=== PATIENT | male | born 1960 | race Caucasian/White ===

== ENCOUNTER 2018-07-05 20:44 | Emergency (ER) | payer OTHER, SELFPAY ==
[2018-07-05 20:45] VITALS: BP 142/91; PULSE 88; RESP 18; TEMP 36.4; O2SAT 98; BMI 22.2
--- NOTE | 2018-07-05 21:04 | CT_ITS ---
STUDY: CT ABDOMEN AND PELVIS WITHOUT CONTRAST REASON FOR EXAM: Male, 57 years old. Right flank and low back pain with urinary frequency RADIATION DOSAGE (If Supplied By Facility): CTDIvol = ( 16.30 ) mGy, DLP = ( 761.68 ) mGycm TECHNIQUE: Transaxial images were obtained from the dome of the diaphragm to the symphysis pubis without oral contrast, and without intravenous contrast. Sagittal and coronal images were reconstructed. Individualized dose optimization techniques were used for this CT. COMPARISON: None. FINDINGS: The visualized lung bases are unremarkable. The visualized portions of the heart are within normal limits. Normal liver. Normal gallbladder and extrahepatic biliary system. Normal spleen. Normal pancreas. Normal bilateral adrenal glands. Normal right kidney. Peripelvic left renal cysts. Normal visualized stomach. Normal small intestine. Normal colon. The appendix is visualized and appears normal. Normal abdominal aorta. Normal inferior vena cava. Normal retroperitoneum. Normal urinary bladder. Normal abdominal wall. Normal osseous structures. CT/Abdomen/Pelvis without Cont IMPRESSION: No CT evidence of acute abdominopelvic pathology. No evidence of appendicitis, acute intestinal pathology, or acute obstructive uropathy. Electronically Signed: Donavan Bolivar MD at 22:08 EST Tel , Service support ,
[2018-07-05 21:20] LABS: Mucous, Urine 0 SEEN /hpf (<or=2+); Red Blood Cells-Urine 0 SEEN /hpf (0-5); Squamous Epithelial Cells - UA 0 SEEN /hpf (0-5)
[2018-07-05 21:35] LABS: Color, Urine Yellow (Yellow); Glucose, Dipstick Normal (Normal); Ketone-Dipstick 5 mg/dl (Negative); Leukocyte Esterase-Dipstick 500 /ul (Negative); Nitrite-Dipstick Positive (Negative); Occult Blood-Urine 25 /ul (Negative); Protein-Dipstick 15 mg/dl (Negative); Urine Bilirubin Dipstick Negative (Negative); Urine Clarity Cloudy (Clear); Urine Urobilinogen 1 mg/dl (Normal)
[2018-07-05 21:38] LABS: Bacteria 3+ /hpf (None Seen); White Blood Cells 25-50 SEEN /hpf (0-5)
--- NOTE | 2018-07-05 22:27 | ED.DCSUM_ITS ---
- ER Visit Summary Date of Service: 07/05/18 Chief Complaint: Right flank pain History of Present Illness: The patient is a 57 M reports right flank pain for the past 3 or 4 days. He initially thought he pulled a muscle. It is worse with movement. He has also noted urinary frequency and is now wondering if he may have a UTI or kidney stone. He had some mild nausea tonight. No significant fever. Physical Examination: Vital signs unremarkable. Patient sitting upright in bed no acute distress. Heart is regular rate and rhythm. Lungs sounds clear. Abdomen is soft with no focal tenderness. He does have mild right CVA tenderness. Test Results: Urinalysis is positive for nitrites with 25-50 white cells and 3+ bacteria. CT flank is unremarkable. Emergency Department Course and Treatment: Urine culture has been sent. Patient be treated with a course of Cipro. I will treat him for 10 days to cover pyelonephritis as he does have pain into the flank region. No perinephric stranding or significant inflammation is noted at this time on CT. Patient denies significant rectal pain or pressure. He states he has had prostatitis before this does not feel similar. Treatment Plan: [] Disposition: Discharge Impression: Pyelonephritis This note was generated with [employer] dictation software. It may contain incorrect words, spelling, and punctuation that were not noted in review of the chart prior to signing ED Disposition - Plan for ED Patient: Disposition: Home or Assisted Living Chief Complaint: Flank Pain Instructions: ED UTI Pyelonephritis Male Prescriptions: Ciprofloxacin [Cipro] 500 mg PO BID #20 tablet Referrals: Eldon Dye MD [Primary Care Provider] - 1 Week
[2018-07-05] MEDS: Ciprofloxacin 500 MG Tablet PO (22:33)
[2018-07-05 22:35] VITALS: BP 118/74; PULSE 62; RESP 15; O2SAT 99
== END 2018-07-05 22:35 | disposition home or self-care (01) ==
PROVIDERS: Emergency Provider Emergency Medicine; Family Provider Family Medicine; PCP Family Medicine
DX: N12 Tubulo-interstitial nephritis, not specified as acute or chronic (principal); G47.419 Narcolepsy without cataplexy; Z87.442 Personal history of urinary calculi
CPT/HCPCS: 74176; 81001; 87086; 87088; 87186; 99283

== ENCOUNTER 2024-11-29 22:34 | Inpatient (IN) | payer BC, MEDICARE, SELFPAY ==
[2024-11-29 22:35] VITALS: BP 154/79; PULSE 67; RESP 18; TEMP 36.6; O2SAT 100; BMI 24.3
--- NOTE | 2024-11-29 22:54 | EKG12_ITS ---
Test Reason : CP Blood Pressure : */* mmHG Vent. Rate : 70 BPM Atrial Rate : 70 BPM P-R Int : 162 ms QRS Dur : 82 ms QT Int : 396 ms P-R-T Axes : 75 29 61 degrees QTcB Int : 427 ms Normal sinus rhythm Nonspecific ST abnormality Abnormal ECG Confirmed by ASHKAN TIJERINA MD ([id number]), rewrite editor CB ENRIQUE ([id number]) on 12/01/2024 2:05:47 PM Referred By: Confirmed By: ASHKAN TIJERINA MD
[2024-11-29 23:09] LABS: Absolute Lymphocyte Count 1.18 X10^3/uL (0.83-4.51); Absolute Neutrophil Count 4.3 X10^3/uL (2.0-7.7); Basophil# 0.04 X10^3/uL; Basophil% 0.7 % (0-1); Eosinophil# 0.04 X10^3/uL; Eosinophils% 0.7 % (0-5); Hemoglobin 13.6 g/dL (13.0-16.5); Lymphocyte # 1.18 X10^3/ul (0.83-4.51); Lymphocyte % 19.2 % (19-41); Mean Corp Hgb Conc 35.8 g/dL (32-36); Mean Corpuscular Hgb 31.7 pg (27.0-32.0); Mean Corpuscular Volume 88.6 fL (80-94); Mean Platelet Vol. 9.6 fl (6.2-12.0); Monocyte# 0.59 X10^3/uL; Monocyte% 9.6 % (0-10); NRBC Flagged by Analyzer 0 % (0-5); Neutrophil # 4.27 X10^3/uL (2.7-7.7); Neutrophil % 69.5 % (47-70); Platelet Count 244 K/mm3 (150-450); RBC Distribution Width CV 12.1 % (11.6-14.6); RBC Distribution Width SD 38.6 fl (35.1-43.9); Red Blood Count 4.29 M/mm3 (4.6-6.2); White Blood Count 6.1 K/mm3 (4.4-11.0)
--- NOTE | 2024-11-29 23:10 | RAD_ITS ---
PROCEDURE: CHEST PA AND LATERAL 11/29/2024 REASON FOR EXAM: CHEST PAIN TECHNIQUE: Frontal and lateral views of the chest. FINDINGS: Hardware: None Heart: The heart size is normal. Mediastinum: The mediastinal contour is unremarkable. Lungs: The lungs are clear. Bones: The bones are unremarkable. RAD/Chest PA and Lateral IMPRESSION: NEGATIVE CHEST Reading Location: [id number]
[2024-11-29 23:26] LABS: Anion Gap 11 (5-15); BUN 19 mg/dL (4-19); Calcium,Total 8.9 mg/dL (7.6-11.0); Carbon Dioxide 22.9 mmol/L (21.0-32.0); Chloride 106 mmol/L (98-108); Creatinine, Serum 1.14 mg/dL (0.70-1.20); EST Glomerular Filtration Rate 71 (>60); Glucose 127 mg/dL (70-99); Magnesium 2.2 mg/dL (1.5-2.2); Potassium 4.1 mmol/L (3.3-5.1); Sodium Level 140 mmol/L (133-145)
[2024-11-29 23:30] VITALS: BP 123/64; PULSE 70; RESP 16; O2SAT 98
[2024-11-29 23:30] LABS: D-Dimer Quantitative (DVT/PE) 0.27 FEU/ug/m (0.27-0.49)
[2024-11-29 23:40] LABS: Troponin T High Sensitivity 15 ng/L (<=22)
--- NOTE | 2024-11-29 23:46 | PCA ---
no old ekg
[2024-11-30] VITALS (18 sets, daily range): BP systolic 116–174; BP diastolic 64–111; PULSE 51–65; RESP 14–18; TEMP 36.4–36.8; O2SAT 94–100; BMI 23.0
[2024-11-30 01:05] LABS: Troponin T High Sens 2 HR 30 ng/L (<=22)
--- NOTE | 2024-11-30 01:15 | HP.PCM.HOS_ITS ---
HPI - General General Date of Admission: 11/30/24 Date of Service: 11/30/24 Chief Complaint: Chest Pain. HPI Narrative PAWEL PEREZ, is a 64 M with a past medical history of essential hypertension; on Nebivolol, history of asthma; on as needed albuterol inhaler, history of depression with anxiety; on bupropion and positive family history of premature coronary artery disease in his father who had an DC in his early 60's who presents to [facility] ER complaining of chest pain. Mr. 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 Upon further questioning he admits to intermittent chest pain that was similar but less severe over the last few days. At first he thought his pain was pulmonary in nature, as it was similar to his previous chest tightness associated with asthma but when the pain began radiating and there was no wheezing he finally decided to come in for further evaluation and treatment. He denies associated fever, chills, changes in vision, runny nose, sore throat, ear pain, shortness of breath, abdominal pain, nausea, vomiting, diarrhea, constipation, dysuria, back pain, headache, rash or a personal history of known CAD. In the ER he was noted to have a normal initial troponin T of 15 ng/L that demetrius to 30 ng/L worrisome for possible early coronary ischemia and he was then admitted to the PCU for ongoing care for a stay that is expected to extend beyond 2 midnights. [facility] Medical History Depression Anxiety Chest pain Hypertension Home Medications ?Medication ?Instructions ?Recorded ?Last Taken ?Type albuterol sulfate 90 mcg/actuation 2 puff inhalation Q 4H PRN 11/29/24 Unknown History aerosol inhaler shortness of breath or wheez ing bupropion HCl 150 mg tablet,12 hr 150 mg PO DAILY 11/10 09/04 Unknown History sustained-release nebivolol 5 mg tablet 5 mg PO DAILY 11/29/24 Unkno wn History modafinil 200 mg tablet (Provigil) 150 mg PO DAILY Bruce colepsy 11/30/24 11/29/24 History omeprazole 20 mg tablet,delayed 20 mg PO DAILY 5 11/29/24 History release Allergy/AdvReac Type Severity Reaction Status Date / Time erythromycin base AdvReac Itching Verified 11/29/24 22:36 hydrocodone AdvReac Itching Verified 11/29/24 22:36 oxycodone AdvReac Itching Verified 11/29/24 22:36 Social History Smoking Status: Never smoker ROS ROS Narrative Review of Systems: Constitutional: Patient denies fever or chills. Eyes: Patient denies changes in vision or discharge from eyes. ENT: Patient denies runny nose, sore throat or ear pain. Resp: Patient denies shortness of breath or cough. CV: Patient admits chest pain as per HPI. He denies palpitations, heart racing or lower extremity edema. GI: Patient denies abdominal pain, nausea, vomiting, diarrhea or constipation. : Patient denies dysuria, hematuria urinary frequency. MSK: Patient denies arthralgias or myalgias. Skin: Patient denies rash, abscess, wounds or jaundice. Psych: Patient denies symptoms uncontrolled depression or anxiety. Neuro: Patient denies headache, paresthesias or focal neurologic deficits. Allergy: Patient denies lip swelling, tongue swelling or urticaria. Hematology: Patient denies easy bleeding or easy bruisability. Endocrinology: Patient denies polyuria, polydipsia, polyphagia or heat/cold intolerance. 14 point ROS otherwise negative save for positives noted above in HPI Vital Signs Vital Signs Vital Signs: 11/29/24 22:35 11/29/24 22:50 11/29/24 23:30 Temperature 97.8 F Temperature Source Oral Pulse Rate 67 70 Respiratory Rate 18 16 Respiratory Effort Normal Blood Pressure 154/79 H 123/64 H Blood Pressure Mean 104 83 Pulse Ox 100 98 Oxygen Delivery Method Room Air Room Air 11/30/24 00:00 11/30/24 01:00 Temperature Temperature Source Pulse Rate 65 63 Respiratory Rate 18 14 Respiratory Effort Blood Pressure 136/71 H 131/71 H Blood Pressure Mean 92 91 Pulse Ox 99 97 Oxygen Delivery Method Room Air Room Air Weight Weight: 160 lb 4 oz Body Mass Index (BMI) 24.3 Physical Exam Const alert, oriented x3, no apparent distress, average body habitus and healthy appearing General Appearance: cooperative HEENT normocephalic, head/scalp atraumatic, hearing grossly normal bilaterally and moist oral mucous membranes Eyes PERRL, EOMs intact bilaterally and conjunctivae normal Neck no lymphadenopathy, supple and no JVD Resp normal respiratory effort, no retractions, no use of accessory muscles and clear to auscultation bilaterally Cardio regular rate and regular rhythm GI normal to inspection, nondistended, normoactive bowel sounds, soft to palpation, non-tender and non-distended Extremity normal to inspection, full ROM and no clubbing, cyanosis or edema Skin Skin Narrative: Patient had evidence of rash, abscess, wounds or jaundice. Neuro oriented x3, CN's II-XII intact bilaterally, moves all extremities and no focal motor deficits Sensorium / Orientation: awake, alert, oriented to person, oriented to place and oriented to time Speech: speech normal Psych affect normal Results Medical Records Data Attestation: I reviewed the patient's medical records Lab / Micro Data Attestation: I reviewed the patient's lab results. 11/30/24 03:20 11/30/24 03:20 Labs: Laboratory Results - last 24 hr 11/29/24 22:45: WBC 6.1, RBC 4.29 L, Hgb 13.6, Hct 38.0 L, MCV 88.6, MCH 31.7, MCHC 35.8, RDW Std Deviation 38.6, RDW Coeff of Leah 12.1, Plt Count 244, MPV 9.6, Immature Gran % (Auto) 0.300, Neut % (Auto) 69.5, Lymph % (Auto) 19.2, Childress % (Auto) 9.6, Eos % (Auto) 0.7, Baso % (Auto) 0.7, Absolute Neuts (auto) 4.3, Absolute Lymphs (auto) 1.18, Nucleated RBC % 0, D-Dimer Quant (PE/DVT) 0.27, Sodium 140, Potassium 4.1, Chloride 106, Carbon Dioxide 22.9, Anion Gap 11, BUN 19, Creatinine 1.14, Estim Creat Clear Calc 62.50, Est GFR (MDRD) Non-Af 71, BUN/Creatinine Ratio 17.0, Glucose 127 H, Calcium 8.9, Magnesium 2.2, Troponin T High Sens 15 11/30/24 00:40: Troponin T Hi Sens 2 Hr 30 H Imaging Radiology Impression Chest X-Ray 11/29/24 23:10 IMPRESSION: NEGATIVE CHEST Reading Location: [facility] Assessment & Plan Assessment/Plan (1) Nonspecific chest pain: (2) Elevated troponin: (3) Family history of coronary artery disease in father: PLAN: Plan 1. Chest Pain; with normal initial troponin of 15 ng/L followed by second upwardly trending troponin of 30 ng/L in the setting of a positive family history of premature CAD in his father - Admit to PCU. Serialize troponin. Check echocardiogram to evaluate LVEF. Check nuclear stress test to evaluate for underlying ischemia. Give aspirin and statin, check lipid profile and give full-dose enoxaparin. Give SL NTG as needed anginal-type chest pain. Give acetaminophen as needed for [id number] (level 1-5/10) pain or fever. Give morphine IV as needed for severe (level 6-10/10) pain. Finally, we will consult [facility] to see this patient on rounds in the a.m. further recommendations with help appreciated in advance. 2. Essential hypertension; on Nebivolol - Continue current therapy with dose to be given after NST. Give hydralazine IV as needed for systolic blood pressure greater 160 mmHg. 3. History of asthma; on as needed albuterol inhaler - Stable with no evidence of acute flare at this time. Continue as needed inhaler. 4. History of depression with anxiety; on bupropion - Maintain current treatment plus check TSH. 5. DVT prophylaxis - Patient will be treated with full-dose enoxaparin in light of #1 in case of non-ST elevation DC. Total time: Approximately (but not less than) 55 minutes. Charges/Coding Visit Charges Inpatient E&M: 76589 Init Hosp L2
--- NOTE | 2024-11-30 01:21 | EDS_ITS ---
HPI History of Present Illness Chief Complaint: Chest Pain Informant: patient and spouse/S.O. Narrative Narrative: Patient is a 64-year-old male with past medical history of hypertension. He states that throughout the day today he has noticed intermittent bouts of chest pain. He states the pain will encompass his entire chest from right to left and radiate slightly into the left shoulder/arm region. He denies any associated nausea vomiting diaphoresis or shortness of breath but does report that the pain feels more like a squeeze or pressure. He states that his father had a stent placed at roughly the same age. He states that as symptoms have been recurrent and he has a family history of CAD he was concerned this could be cardiac in nature and therefore comes in for evaluation. [facility] Medical History Depression Anxiety Chest pain Hypertension Home Medications ?Medication ?Instructions ?Recorded ?Last Taken ?Type albuterol sulfate 90 mcg/actuation 2 puff inhalation Q 4H PRN 11/29/24 Unknown History aerosol inhaler shortness of breath or wheez ing bupropion HCl 150 mg tablet,12 hr 150 mg PO DAILY 11/10 09/04 Unknown History sustained-release nebivolol 5 mg tablet 5 mg PO DAILY 11/29/24 Unkno wn History Allergy/AdvReac Type Severity Reaction Status Date / Time erythromycin base AdvReac Itching Verified 11/29/24 22:36 hydrocodone AdvReac Itching Verified 11/29/24 22:36 oxycodone AdvReac Itching Verified 11/29/24 22:36 Social History Smoking Status: Never smoker ROS ROS ED Constitutional Constitutional ED: Denies chills or fever(s) Eyes Eyes: Denies change in vision ENT ENT ED: Denies sore throat Cardiovascular Cardiovascular: Reports chest pain; Denies palpitations or racing heartbeat Respiratory/Chest Respiratory/Chest: Denies cough or dyspnea Gastrointestinal Gastrointestinal: Denies abdominal pain, diarrhea, nausea or vomiting Genitourinary Genitourinary ED: Denies dysuria Musculoskeletal Musculoskeletal: Denies back pain Integumentary Denies rash Neurologic Neurologic: Denies headache(s) Hematologic/Lymphatic Hematologic/Lymphatic: Denies easy bleeding or easy bruising EXAM Physical Exam Const Vital Signs: 11/29/24 22:35 11/29/24 22:50 11/29/24 23:30 Temperature 97.8 F Temperature Source Oral Pulse Rate 67 70 Respiratory Rate 18 16 Respiratory Effort Normal Blood Pressure 154/79 H 123/64 H Blood Pressure Mean 104 83 Pulse Ox 100 98 Oxygen Delivery Method Room Air Room Air 11/30/24 00:00 11/30/24 01:00 11/30/24 01:15 Temperature 98 F Temperature Source Pulse Rate 65 63 60 Respiratory Rate 18 14 15 Respiratory Effort Blood Pressure 136/71 H 131/71 H 131/71 H Blood Pressure Mean 92 91 91 Pulse Ox 99 97 98 Oxygen Delivery Method Room Air Room Air Positive well nourished and well developed General Appearance ED: well developed; Negative for pallor HEENT HEENT Narrative: Normocephalic atraumatic Eyes PERRL and EOMs intact bilaterally General Eye ED: Negative for scleral icterus Neck supple Neck Narrative: No nuchal rigidity or meningeal sign Chest Wall palpation of chest normal Chest Narrative: No reproducible pain with palpation No bony deformity or subcutaneous emphysema noted Resp normal respiratory effort and clear to auscultation bilaterally Cardio regular rate and regular rhythm Rate: other Other Details: Heart is regular rate and rhythm without murmurs rubs or gallop Radial and carotid pulses are equal and symmetric No carotid bruit noted GI normal to inspection, nondistended, normoactive bowel sounds, non-tender, non-d istended and no masses Auscultation: normoactive bowel sounds Palpation: soft Extremity normal to inspection Extremity Narrative: No asymmetric edema no pitting edema negative Homans' sign bilaterally Neuro oriented x3, CN's II-XII intact bilaterally and no sensory deficits noted Sensorium / Orientation: alert Motor Exam: strength 5/5 throughout Psych mental status grossly normal Skin no rashes or lesions noted and no wounds General Skin Exam: Negative for jaundice or pallor MDM MDM MDM Narrative Medical decision making narrative: Patient arrived to the ER slightly hypertensive but otherwise with stable vitals. He reported intermittent chest pain but has none currently at this time. As he is a male over the age of 40 with hypertension and family history of CAD he did undergo a cardiac workup. Differential diagnosis is for acute coronary syndrome versus cardiac dysrhythmia versus pneumonia or pneumothorax versus pulmonary embolus. EKG showed nonspecific ST segment changes without true ischemia STEMI or dysrhythmia. Initial troponin was normal at 15 however the 2-hour delta did elevate to 30. Based on the algorithm a initial troponin under 22 that elevates by more than 6 points at the 2-hour quirino does classify as a rule in criteria. Secondary to this the case was discussed with the hospitalist who agrees to accept the patient for continued care. On reevaluation the patient has been resting comfortably and he states he has not had any chest pain during his entire ER stay nor is there any chest pain at this time. However as he does meet rule in criteria he will be admitted to the hosp ital for continued cardiac evaluation History & Record Review Discussion w/independent historian: Patient and Significant other Lab Data Attestation: I reviewed the patient's lab results. Labs: Laboratory Results - last 24 hr 11/29/24 11/30/24 22:45 00:40 WBC 6.1 RBC 4.29 L Hgb 13.6 Hct 38.0 L MCV 88.6 MCH 31.7 MCHC 35.8 RDW Std Deviation 38.6 RDW Coeff of Leah 12.1 Plt Count 244 MPV 9.6 Immature Gran % (Auto) 0.300 Neut % (Auto) 69.5 Lymph % (Auto) 19.2 [place] % (Auto) 9.6 Eos % (Auto) 0.7 Baso % (Auto) 0.7 Absolute Neuts (auto) 4.3 Absolute Lymphs (auto) 1.18 Nucleated RBC % 0 D-Dimer Quant (PE/DVT) 0.27 Sodium 140 Potassium 4.1 Chloride 106 Carbon Dioxide 22.9 Anion Gap 11 BUN 19 Creatinine 1.14 Estim Creat Clear Calc 62.50 Est GFR (MDRD) Non-Af 71 BUN/Creatinine Ratio 17.0 Glucose 127 H Calcium 8.9 Magnesium 2.2 Troponin T High Sens 15 Troponin T Hi Sens 2 Hr 30 H Radiography Diagnostic Testing: Clinical Impression(s) from Imaging Studies Chest X-Ray 11/29/24 23:10 IMPRESSION: NEGATIVE CHEST Reading Location: [facility] Chest x-ray as interpreted by the emergency medicine physician reveals no acute infiltrate pneumothorax or pleural effusion Management Discussion w/another healthcare provider: Hospitalist Discharge Plan Dx/Rx/DC Orders Clinical Impression: Nonspecific chest pain, Hypertension, Elevated troponin Disposition Disposition: Acute Care Hospital [facility]
[2024-11-30] MEDS: Aspirin 325 MG Tablet PO (01:40)
--- NOTE | 2024-11-30 01:56 | EKG12_ITS ---
Test Reason : CP ADMIT Blood Pressure : */* mmHG Vent. Rate : 57 BPM Atrial Rate : 57 BPM P-R Int : 162 ms QRS Dur : 94 ms QT Int : 432 ms P-R-T Axes : 71 43 57 degrees QTcB Int : 420 ms Sinus bradycardia with Premature atrial complexes Otherwise normal ECG When compared with ECG of 29-Nov-2024 22:42, MANUAL COMPARISON REQUIRED DATA IS UNCONFIRMED Confirmed by BREEZY BURTON, ASHKAN ([id number]), video tape editor MILAGRO ARZOLA ([id number]) on 12/01/2024 8:56:06 AM Referred By: Confirmed By: ASHKAN TIJERINA MD
--- NOTE | 2024-11-30 01:56 | ECHOD_ITS ---
Reason For Study Reason For Study: Chest Pain Procedure This was a 2D Doppler, Color Flow transthoracic echocardiogram. Exam performed portable in patient room. Left Ventricle Normal LV size. Left ventricular systolic function is normal. The left ventricular ejection fraction is 65 %. No regional wall motion abnormalities noted. Right Ventricle Normal RV size. Normal systolic function. Atria Normal left atrium. Normal right atrium. Mitral Valve Normal mitral valve. Mild (1+) eccentric mitral valve insufficiency. Tricuspid Valve Normal tricuspid valve. Aortic Valve Trisinus/trileaflet aortic valve. Pulmonic Valve Normal pulmonic valve. Great Vessels Normal aortic root. The pulmonary artery is normal size. Normal inferior vena cava. Pericardium/Pleural No pericardial effusion. MMode/2D Measurements & Calculations LVIDd: 4.2 cm IVSd: 0.81 cm Ao root diam: 2.5 cm LVIDs: 2.8 cm LVPWd: 0.76 cm RVDd: 3.4 cm FS: 31.9 % LAV(MOD-bp): 28.4 ml LVAd ap4: 21.0 cm2 SV(MOD-sp4): 33.0 ml LAV(MOD-bp) Indexed: 15.4 ml/m2 LVLd ap4: 7.4 cm SI(MOD-sp4): 18.0 ml/m2 LAV(MOD-sp2): 35.1 ml EDV(MOD-sp4): 48.8 ml LAV(MOD-sp4): 22.8 ml EDV(sp4-el): 50.4 ml LVAs ap4: 10.5 cm2 LVLs ap4: 6.0 cm ESV(MOD-sp4): 15.8 ml ESV(sp4-el): 15.5 ml EF(MOD-sp4): 67.7 % EF(sp4-el): 69.2 % SV(sp4-el): 34.9 ml LA A4 area: 11.2 cm2 LA dimension(2D): 3.7 cm RA A4 area: 11.1 cm2 TAPSE: 2.4 cm Time Measurements MV dec time: 0.18 sec Doppler Measurements & Calculations MV E max irving: 76.0 cm/sec Lat Peak E' Irving: 14.6 cm/sec Med Peak E' Irving: 10.2 cm/sec MV A max irving: 85.1 cm/sec E/E' lat: 5.2 E/E' med: 7.5 MV E/A: 0.89 Ao V2 max: 132.2 cm/sec LV V1 max: 96.2 cm/sec MV dec slope: 414.8 cm/sec2 Ao max P.0 mmHg LV V1 max P.7 mmHg Ao V2 mean: 88.3 cm/sec LV V1 mean P.9 mmHg Ao mean P.6 mmHg LV V1 mean: 63.0 cm/sec Ao V2 VTI: 33.0 cm LV V1 VTI: 24.0 cm AV (velocity ratio): 0.73 PA V2 max: 102.2 cm/sec TR max irving: 277.5 cm/sec TR max P.8 mmHg ECHO/Echo Complete Interpretation Summary Normal LV size. Left ventricular systolic function is normal. The left ventricular ejection fraction is 65 %. Structurally normal valves. Ordering Physician: Rafita Vazquez Referring Physician: Eldon Dye Performed By: Eugenia Larson RDCS, RVT
[2024-11-30] MEDS: 0.9% Saline Lock 10 ML Syringe IV (02:35)
[2024-11-30] MEDS: hydrALAZINE 20 MG/ML Vial 5 MG IV ×2 (02:35→13:59)
[2024-11-30 03:43] LABS: Hematocrit 37.8 % (40-54); Hemoglobin 13.4 g/dL (13.0-16.5); Mean Corp Hgb Conc 35.4 g/dL (32-36); Mean Corpuscular Hgb 31.9 pg (27.0-32.0); Mean Platelet Vol. 9.6 fl (6.2-12.0); Platelet Count 232 K/mm3 (150-450); RBC Distribution Width CV 12.1 % (11.6-14.6); RBC Distribution Width SD 39.4 fl (35.1-43.9); White Blood Count 5.1 K/mm3 (4.4-11.0)
[2024-11-30 03:54] LABS: D-Dimer Quantitative (DVT/PE) 0.27 FEU/ug/m (0.27-0.49)
[2024-11-30 04:25] LABS: ALB/GLOB Ratio 1.9 RATIO (0.9-2.4); AST(SGOT) 22 U/L (<=37); Alanine Aminotransfer ALT/SGPT 35 U/L (<=46); Albumin, Serum 4.1 g/dL (3.4-4.8); Alkaline Phosphatase 79 U/L (40-129); Anion Gap 11 (5-15); BUN 19 mg/dL (4-19); BUN/Creat Ratio 19.9 RATIO (10-20); Calcium,Total 9.1 mg/dL (7.6-11.0); Carbon Dioxide 22.7 mmol/L (21.0-32.0); Chloride 106 mmol/L (98-108); Creatinine, Serum 0.97 mg/dL (0.70-1.20); EST Glomerular Filtration Rate 86 (>60); Estimated Creatinine Clearance 75.92 ml/min (50-250); Globulin 2.2 g/dL (2.2-4.2); Glucose 103 mg/dL (70-99); Potassium 4.1 mmol/L (3.3-5.1); Protein, Total 6.3 g/dL (5.9-8.4); Sodium Level 140 mmol/L (133-145); Total Bilirubin 0.39 mg/dL (0.00-1.30)
[2024-11-30 05:03] LABS: Troponin T High Sens 4 HR 27 ng/L (<=22)
[2024-11-30 05:24] LABS: Cholesterol 172 mg/dL (<=200); High Density Lipoprotein 33 mg/dL; Low Density Lipoprotein Calc. 103 mg/dL; Triglycerides 179 mg/dL; Very Low Density Lipoprotein 36 mg/dL (5-40); cholesterol:hdl ratio screen 5.18
[2024-11-30] MEDS: Modafinil 200 MG Tablet PO (10:15)
[2024-11-30] MEDS: buPROPion (SR) 150 MG Tablet.SA PO (10:15)
[2024-11-30] MEDS: Pantoprazole Sodium 20 MG Tablet PO (10:16)
[2024-11-30] MEDS: Acetaminophen 325 MG Tablet 650 MG PO (10:43)
--- NOTE | 2024-11-30 11:01 | CON.PCM.CA_ITS ---
HPI Consult Data Date of Consult: 11/30/24 HPI Narrative HPI Narrative: PAWEL PEREZ, is a 64 M who presentsPAWEL PEREZ, is a 64 M with a past medical history of essential hypertension; on Nebivolol, history of asthma; on as needed albuterol inhaler, history of depression with anxiety; on bupropion and positive family history of premature coronary artery disease in his father who had an CO in his early 60's who presents to [facility] ER complaining of chest pain. Mr. 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 Upon further questioning he admits to intermittent chest pain that was similar but less severe over the last few days. At first he thought his pain was pulmonary in nature, as it was similar to his previous chest tightness associated with asthma but when the pain began radiating and there was no wheezing he finally decided to come in for further evaluation and treatment. He denies associated fever, chills, changes in vision, runny nose, sore throat, ear pain, shortness of breath, abdominal pain, nausea, vomiting, diarrhea, constipation, dysuria, back pain, headache, rash or a personal history of known CAD. In the ER he was noted to have a normal initial troponin T of 15 ng/L that demetrius to 30 ng/L worrisome for possible early coronary ischemia and he was then admitted to the PCU for ongoing care for a stay that is expected to extend beyond 2 midnights. PENDING SALE TO [facility] Medical History Depression Anxiety Chest pain Hypertension Home Medications ?Medication ?Instructions ?Recorded ?Last Taken ?Type albuterol sulfate 90 mcg/actuation 2 puff inhalation Q 4H PRN 11/29/24 Unknown History aerosol inhaler shortness of breath or wheez ing bupropion HCl 150 mg tablet,12 hr 150 mg PO DAILY 11/10 09/04 Unknown History sustained-release nebivolol 5 mg tablet 5 mg PO DAILY 11/29/24 Unkno wn History diclofenac sodium 75 mg 75 mg PO BID 11/30/24 Unknow n History tablet,delayed release eszopiclone 3 mg tablet (Lunesta) 3 mg PO .hs sleep Unknown History modafinil 200 mg tablet (Provigil) 200 mg PO DAILY Bruce colepsy 11/30/24 11/29/24 History omeprazole 20 mg tablet,delayed 20 mg PO DAILY 5 11/29/24 History release Allergy/AdvReac Type Severity Reaction Status Date / Time erythromycin base AdvReac Itching Verified 11/29/24 22:36 hydrocodone AdvReac Itching Verified 11/29/24 22:36 oxycodone AdvReac Itching Verified 11/29/24 22:36 Social History Smoking Status: Never smoker Objective Data Vital Signs: Vital Signs Temp Pulse Resp BP Pulse Ox O2 Del Method 97.9 F 62 14 147/83 H 99 Room Air 11/30/24 05:20 11/30/24 05:20 11/30/24 05:20 11/30/24 05:20 11/30/24 05:20 11/30/24 05:20 Oxygen Delivery Method Room Air Weight: 156 lb 1.396 oz Body Mass Index (BMI) 23.0 Lab / Micro Data 11/30/24 03:20 11/30/24 03:20 Labs: Laboratory Results - last 24 hr 11/29/24 22:45: WBC 6.1, RBC 4.29 L, Hgb 13.6, Hct 38.0 L, MCV 88.6, MCH 31.7, MCHC 35.8, RDW Std Deviation 38.6, RDW Coeff of Leah 12.1, Plt Count 244, MPV 9.6, Immature Gran % (Auto) 0.300, Neut % (Auto) 69.5, Lymph % (Auto) 19.2, Benson % (Auto) 9.6, Eos % (Auto) 0.7, Baso % (Auto) 0.7, Absolute Neuts (auto) 4.3, Absolute Lymphs (auto) 1.18, Nucleated RBC % 0, D-Dimer Quant (PE/DVT) 0.27, Sodium 140, Potassium 4.1, Chloride 106, Carbon Dioxide 22.9, Anion Gap 11, BUN 19, Creatinine 1.14, Estim Creat Clear Calc 62.50, Est GFR (MDRD) Non-Af 71, BUN/Creatinine Ratio 17.0, Glucose 127 H, Calcium 8.9, Magnesium 2.2, Troponin T High Sens 15 11/30/24 00:40: Troponin T Hi Sens 2 Hr 30 H 11/30/24 03:20: WBC 5.1, RBC 4.20 L, Hgb 13.4, Hct 37.8 L, MCV 90.0, MCH 31.9, MCHC 35.4, RDW Std Deviation 39.4, RDW Coeff of Leah 12.1, Plt Count 232, MPV 9.6, D-Dimer Quant (PE/DVT) 0.27, Sodium 140, Potassium 4.1, Chloride 106, Carbon Dioxide 22.7, Anion Gap 11, BUN 19, Creatinine 0.97, Estim Creat Clear Calc 75.92, Est GFR (MDRD) Non-Af 86, BUN/Creatinine Ratio 19.9, Glucose 103 H, Calcium 9.1, Total Bilirubin 0.39, AST 22, ALT 35, Alkaline Phosphatase 79, T roponin T Hi Sens 4Hr 27 H, Total Protein 6.3, Albumin 4.1, Globulin 2.2, Albumin/Globulin Ratio 1.9, Triglycerides 179, Cholesterol 172, LDL Cholesterol, Calc 103, VLDL Cholesterol 36, HDL Cholesterol 33 L, Cholesterol/HDL Ratio 5.18, TSH 3.000 Cardiology Labs/Tests 11/29/24 22:45: WBC 6.1, RBC 4.29 L, Hgb 13.6, Hct 38.0 L, MCV 88.6, MCH 31.7, MCHC 35.8, Plt Count 244, MPV 9.6, Immature Gran % (Auto) 0.300, Neut % (Auto) 69.5, Lymph % (Auto) 19.2, Benson % (Auto) 9.6, Eos % (Auto) 0.7, Baso % (Auto) 0.7, Absolute Neuts (auto) 4.3, Nucleated RBC % 0, D-Dimer Quant (PE/DVT) 0.27, Sodium 140, Potassium 4.1, Chloride 106, Carbon Dioxide 22.9, Anion Gap 11, BUN 19, Creatinine 1.14, Est GFR (MDRD) Non-Af 71, BUN/Creatinine Ratio 17.0, G lucose 127 H, Calcium 8.9, Magnesium 2.2 11/30/24 03:20: WBC 5.1, RBC 4.20 L, Hgb 13.4, Hct 37.8 L, MCV 90.0, MCH 31.9, MCHC 35.4, Plt Count 232, MPV 9.6, D-Dimer Quant (PE/DVT) 0.27, Sodium 140, Potassium 4.1, Chloride 106, Carbon Dioxide 22.7, Anion Gap 11, BUN 19, Creatinine 0.97, Est GFR (MDRD) Non-Af 86, BUN/Creatinine Ratio 19.9, Glucose 103 H, Calcium 9.1, Total Bilirubin 0.39, Triglycerides 179, Cholesterol 172, VLDL Cholesterol 36, HDL Cholesterol 33 L, Cholesterol/HDL Ratio 5.18 Rhythm: EKG: ECHO: Stress Test: Cardiac Cath: PCI: CT Surgery: Holter monitor: EPS: PPM: CXR: Chest CT Scan: Radiography Diagnostic Testing: Radiology Impression Chest X-Ray 11/29/24 23:10 IMPRESSION: NEGATIVE CHEST Reading Location: [id number]
--- NOTE | 2024-11-30 11:01 | PCM.CONS.C ---
Assessment & Plan Assessment/Plan (1) Elevated troponin: PLAN: He does have an elevated troponin with typical chest discomfort. Unfortunately his stress test he underwent this morning was abnormal and I will recommend that we perform a left heart catheterization. Risk benefits alternatives have been explained to him and his . He depending on the results further recommendations will be made. (2) Hypertension: PLAN: His blood pressure appears to be under fair control. It was noted to be elevated when he had his chest discomfort. Appropriate adjustments will be made. PLAN: Plan Addendum: Cardiac catheterization demonstrates normal left main coronary artery. Left anterior descending artery with 90% proximal stenosis and 90% first diagonal vessel mid 60% and distal 80% stenosis. Left circumflex artery with proximal 60% and first obtuse marginal branch with 80% stenosis. Dominant right coronary artery with mild proximal disease and posterior descending artery 80% stenosis. Preserved left ventricular ejection fraction. After discussion with gasoline tractor operator, cardiac surgeon the decision will be to transfer the patient for coronary bypass graft surgery. HPI Consult Data Date of Consult: 11/30/24 HPI Narrative HPI Narrative: PAWEL MACDONALD, is a 64 M who presents to the emergency room with chest discomfort described as a squeezing sensation while he was working at home. It radiated across his chest and he had mild diaphoresis. He quit what he was doing and then started again and he had the chest discomfort returned again. He does have a history of mild hypertension and asthma. Otherwise he has no significant history. He decided to present to the emergency room was evaluated his EKG demonstrated sinus rhythm with no acute changes. Cardiac enzymes were noted to be minimally abnormal and he was scheduled for stress test. He underwent the stress test which demonstrated evidence of anterior ischemia. He has had no further chest pain since admission. No dizziness or diaphoresis no near-syncope or syncope. [facility] Medical History Depression Anxiety Chest pain Hypertension Home Medications ?Medication ?Instructions ?Recorded ?Last Taken ?Type albuterol sulfate 90 mcg/actuation 2 puff inhalation Q4H PRN 11/29/24 Unknown History aerosol inhaler shortness of breath or wheezing bupropion HCl 150 mg tablet,12 hr 150 mg PO DAILY 11/29/24 Unknown History sustained-release nebivolol 5 mg tablet 5 mg PO DAILY 11/29/24 Unknown History diclofenac sodium 75 mg 75 mg PO BID 11/30/24 Unknown History tablet,delayed release eszopiclone 3 mg tablet (Lunesta) 3 mg PO .hs sleep 11/30/24 Unknown History modafinil 200 mg tablet (Provigil) 200 mg PO DAILY Narcolepsy 11/30/24 11/29/24 History omeprazole 20 mg tablet,delayed 20 mg PO DAILY 11/30/24 11/29/24 History release Allergy/AdvReac Type Severity Reaction Status Date / Time erythromycin base AdvReac Itching Verified 11/29/24 22:36 hydrocodone AdvReac Itching Verified 11/29/24 22:36 oxycodone AdvReac Itching Verified 11/29/24 22:36 Social History Smoking Status: Never smoker ROS Constitutional Constitutional: Denies fever(s) or weight loss Eyes Eyes: Reports systems reviewed and no addt'l complaints, except as documented ENT HEENT: Reports systems reviewed and no addt'l complaints, except as documented Cardiovascular Cardiovascular: Reports chest pain at rest, chest pain with activity and dyspnea on exertion; Denies dyspnea at rest, edema, palpitations or paroxysmal nocturnal dyspnea Respiratory/Chest Respiratory/Chest: Reports dyspnea on exertion; Denies productive cough, shortness of breath at rest or shortness of breath with exertion Gastrointestinal Gastrointestinal: Denies change in bowel habits, nausea, vomiting or weight changes Genitourinary Genitourinary: Denies difficulty urinating Musculoskeletal Musculoskeletal: Denies joint stiffness or muscle weakness Integumentary Integumentary: Denies lesions Neurologic Neurologic: Denies dizziness or syncope Psychiatric Psychiatric: Denies anxiety Endocrine Endocrinology: Denies excessive sweating or fatigue Hematologic/Lymphatic Hematologic/Lymphatic: Denies anemia Allergic/Immunologic Allergic/Immunologic: Denies seasonal rhinorrhea Physical Exam Const alert, oriented x3 and no apparent distress General Appearance: cooperative HEENT hearing grossly normal bilaterally Head and Scalp: atraumatic Eyes EOMs intact bilaterally Neck General: normal visual inspection Chest inspection of chest normal and palpation of chest normal Resp normal respiratory effort Auscultation: clear to auscultation bilaterally Cardio regular rate, regular rhythm, S1 normal heart sound and S2 normal heart sound Jugular Venous Distention: JVD GI normal to inspection, nondistended, normoactive bowel sounds Extremity normal capillary refill and no pedal edema Peripheral Pulses: Yes pulses 2+ throughout and femoral pulses present Skin no rashes or lesions noted Neuro oriented x3 and CN's II-XII intact bilaterally Psych Appearance: grossly normal and appropriate Risk Stratification Risk Stratification Applicable: Yes Age >/= 65: Yes >/= 3 CAD Risk Factors (HTN, HLD, DM, family hx of CAD, or current smoker): No Aspirin Use in the Past 7 Days: No Severe Angina (>/= episodes in 24 hours): No EKG ST Changes >/= 0.5mm: No Positive Cardiac Marker: Yes REYNA Risk Stratification Score: 2 REYNA % Risk: 8% Risk Objective Data Vital Signs: Vital Signs Temp Pulse Resp BP Pulse Ox O2 Del Method 97.9 F 62 14 147/83 H 99 Room Air 11/30/24 05:20 11/30/24 05:20 11/30/24 05:20 11/30/24 05:20 11/30/24 05:20 11/30/24 05:20 Oxygen Delivery Method Room Air Weight: 156 lb 1.396 oz Body Mass Index (BMI) 23.0 Lab / Micro Data 11/30/24 03:20 11/30/24 03:20 Labs: Laboratory Results - last 24 hr 11/29/24 22:45: WBC 6.1, RBC 4.29 L, Hgb 13.6, Hct 38.0 L, MCV 88.6, MCH 31.7, MCHC 35.8, RDW Std Deviation 38.6, RDW Coeff of Leah 12.1, Plt Count 244, MPV 9.6, Immature Gran % (Auto) 0.300, Neut % (Auto) 69.5, Lymph % (Auto) 19.2, Caswell % (Auto) 9.6, Eos % (Auto) 0.7, Baso % (Auto) 0.7, Absolute Neuts (auto) 4.3, Absolute Lymphs (auto) 1.18, Nucleated RBC % 0, D-Dimer Quant (PE/DVT) 0.27, Sodium 140, Potassium 4.1, Chloride 106, Carbon Dioxide 22.9, Anion Gap 11, BUN 19, Creatinine 1.14, Estim Creat Clear Calc 62.50, Est GFR (MDRD) Non-Af 71, BUN/Creatinine Ratio 17.0, Glucose 127 H, Calcium 8.9, Magnesium 2.2, Troponin T High Sens 15 11/30/24 00:40: Troponin T Hi Sens 2 Hr 30 H 11/30/24 03:20: WBC 5.1, RBC 4.20 L, Hgb 13.4, Hct 37.8 L, MCV 90.0, MCH 31.9, MCHC 35.4, RDW Std Deviation 39.4, RDW Coeff of Leah 12.1, Plt Count 232, MPV 9.6, D-Dimer Quant (PE/DVT) 0.27, Sodium 140, Potassium 4.1, Chloride 106, Carbon Dioxide 22.7, Anion Gap 11, BUN 19, Creatinine 0.97, Estim Creat Clear Calc 75.92, Est GFR (MDRD) Non-Af 86, BUN/Creatinine Ratio 19.9, Glucose 103 H, Calcium 9.1, Total Bilirubin 0.39, AST 22, ALT 35, Alkaline Phosphatase 79, Troponin T Hi Sens 4Hr 27 H, Total Protein 6.3, Albumin 4.1, Globulin 2.2, Albumin/Globulin Ratio 1.9, Triglycerides 179, Cholesterol 172, LDL Cholesterol, Calc 103, VLDL Cholesterol 36, HDL Cholesterol 33 L, Cholesterol/HDL Ratio 5.18, TSH 3.000 Cardiology Labs/Tests 11/29/24 22:45: WBC 6.1, RBC 4.29 L, Hgb 13.6, Hct 38.0 L, MCV 88.6, MCH 31.7, MCHC 35.8, Plt Count 244, MPV 9.6, Immature Gran % (Auto) 0.300, Neut % (Auto) 69.5, Lymph % (Auto) 19.2, Caswell % (Auto) 9.6, Eos % (Auto) 0.7, Baso % (Auto) 0.7, Absolute Neuts (auto) 4.3, Nucleated RBC % 0, D-Dimer Quant (PE/DVT) 0.27, Sodium 140, Potassium 4.1, Chloride 106, Carbon Dioxide 22.9, Anion Gap 11, BUN 19, Creatinine 1.14, Est GFR (MDRD) Non-Af 71, BUN/Creatinine Ratio 17.0, Glucose 127 H, Calcium 8.9, Magnesium 2.2 11/30/24 03:20: WBC 5.1, RBC 4.20 L, Hgb 13.4, Hct 37.8 L, MCV 90.0, MCH 31.9, MCHC 35.4, Plt Count 232, MPV 9.6, D-Dimer Quant (PE/DVT) 0.27, Sodium 140, Potassium 4.1, Chloride 106, Carbon Dioxide 22.7, Anion Gap 11, BUN 19, Creatinine 0.97, Est GFR (MDRD) Non-Af 86, BUN/Creatinine Ratio 19.9, Glucose 103 H, Calcium 9.1, Total Bilirubin 0.39, Triglycerides 179, Cholesterol 172, VLDL Cholesterol 36, HDL Cholesterol 33 L, Cholesterol/HDL Ratio 5.18 Rhythm: EKG: ECHO: Stress Test: Cardiac Cath: PCI: CT Surgery: Holter monitor: EPS: PPM: CXR: Chest CT Scan: Radiography Diagnostic Testing: Radiology Impression Chest X-Ray 11/29/24 23:10 IMPRESSION: NEGATIVE CHEST Reading Location: [id number]
--- NOTE | 2024-11-30 11:19 | PN.HOSP_ITS ---
Reason for Visit Reason for Visit: Diagnoses Chest pain, unspecified (11/30/24) Other specified abnormal findings of blood chemistry (11/30/24) Family history of ischemic heart disease and other diseases of the circulatory system (11/30/24) Objective Data Objective Data Vital Signs: Vital Signs Temp Pulse Resp BP Pulse Ox O2 Del Method 97.9 F 62 14 147/83 H 99 Room Air 11/30/24 05:20 11/30/24 05:20 11/30/24 05:20 11/30/24 05:20 11/30/24 05:20 11/30/24 05:20 Oxygen Delivery Method Room Air Weight: 70.8 kg Body Mass Index (BMI) 23.0 Lab / Micro Data 11/30/24 03:20 11/30/24 03:20 Labs: Laboratory Results - last 24 hr 11/29/24 22:45: WBC 6.1, RBC 4.29 L, Hgb 13.6, Hct 38.0 L, MCV 88.6, MCH 31.7, MCHC 35.8, RDW Std Deviation 38.6, RDW Coeff of Leah 12.1, Plt Count 244, MPV 9.6, Immature Gran % (Auto) 0.300, Neut % (Auto) 69.5, Lymph % (Auto) 19.2, Winston % (Auto) 9.6, Eos % (Auto) 0.7, Baso % (Auto) 0.7, Absolute Neuts (auto) 4.3, Absolute Lymphs (auto) 1.18, Nucleated RBC % 0, D-Dimer Quant (PE/DVT) 0.27, Sodium 140, Potassium 4.1, Chloride 106, Carbon Dioxide 22.9, Anion Gap 11, BUN 19, Creatinine 1.14, Estim Creat Clear Calc 62.50, Est GFR (MDRD) Non-Af 71, BUN/Creatinine Ratio 17.0, Glucose 127 H, Calcium 8.9, Magnesium 2.2, Troponin T High Sens 15 11/30/24 00:40: Troponin T Hi Sens 2 Hr 30 H 11/30/24 03:20: WBC 5.1, RBC 4.20 L, Hgb 13.4, Hct 37.8 L, MCV 90.0, MCH 31.9, MCHC 35.4, RDW Std Deviation 39.4, RDW Coeff of Leah 12.1, Plt Count 232, MPV 9.6, D-Dimer Quant (PE/DVT) 0.27, Sodium 140, Potassium 4.1, Chloride 106, Carbon Dioxide 22.7, Anion Gap 11, BUN 19, Creatinine 0.97, Estim Creat Clear Calc 75.92, Est GFR (MDRD) Non-Af 86, BUN/Creatinine Ratio 19.9, Glucose 103 H, Calcium 9.1, Total Bilirubin 0.39, AST 22, ALT 35, Alkaline Phosphatase 79, T roponin T Hi Sens 4Hr 27 H, Total Protein 6.3, Albumin 4.1, Globulin 2.2, Albumin/Globulin Ratio 1.9, Triglycerides 179, Cholesterol 172, LDL Cholesterol, Calc 103, VLDL Cholesterol 36, HDL Cholesterol 33 L, Cholesterol/HDL Ratio 5.18, TSH 3.000 Radiography Diagnostic Testing: Radiology Impression Chest X-Ray 11/29/24 23:10 IMPRESSION: NEGATIVE CHEST Reading Location: [id number]
--- NOTE | 2024-11-30 12:02 | STRESSREP ---
Stress Test Report Pharmacologic myocardial perfusion stress test. 64-year-old man with a history of chest pain Resting EKG demonstrates sinus bradycardia with a rate of 58 bpm. Resting blood pressure is 142/80 mmHg. 0.4 mg of regadenoson was infused per usual protocol followed by rapid intravenous saline flush injection. Continuous EKG monitoring was performed. The maximum heart rate was 88 bpm which was 56 beats of max impacted heart rate the maximum workload was 1 metabolic equivalent. At rest there were no ST or T wave changes noted to suggest ischemia and at peak infusion nonspecific ST changes were noted which did not meet the criteria for ischemia. No clinical angina is noted. The final blood pressure was 142/70 mmHg. Myocardial perfusion protocol. 12 mCi of technetium 99m sestamibi was injected at rest. 0.4 mg of regadenoson was infused per usual protocol. At peak infusion 36 mCi of technetium 99m sestamibi was injected stress images were obtained stress and rest images were reconstructed and compared in the short axis vertical long and horizontal long axis. Gated images were also obtained. Perfusion SPECT analysis: Review of the stress images demonstrate normal uptake of tracer noted in all areas of the myocardium, with reduction of perfusion noted in the mid anterior wall. The resting images demonstrate an improvement in the anterior wall suggesting some anterior ischemia present. Gated SPECT analysis: The gated ejection fraction is 75%. Conclusion: Abnormal pharmacologic myocardial perfusion stress test. Preserved ejection fraction.
--- NOTE | 2024-11-30 12:11 | CASEMGMT ---
Insurance review for hospitals In-network with [employer] insurance if transfer is recommended is as follows: [facility], [facility], [place], [facility], [facility], [facility], , [place], [facility], [facility], and [place]. Laquita Oliver, Discharge Planning Asst.
--- NOTE | 2024-11-30 13:25 | CL.D_ITS ---
Patient Name: PAWEL MACDONALD Study Date: 11/30/2024 Performing: Sher Rascon MD Ht: 69 inches 175.26 cm : 1960 Wt: 156.09 lbs 70.8 kg Age: 64 Gender: male BSA: 1.86 PROCEDURE(S) PERFORMED [id number])[facility] CLINICAL PROFILE AND INDICATIONS Indications: Suspected CAD Heart Failure: None Stress/Imaging Stress/Image Study Performed: No CAD Presentations: Unstable angina. 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 RECOMMENDATIONS Discussed with interventionalists and cardiac surgeon and all looking at films and decision to proceed with coronary bypass surgery. DESCRIPTION OF PROCEDURE The patient arrived to the procedure lab. The risks and benefits of the procedure as well as a full description of our services here and current unavailability of surgical backup were fully explained to the patient and/or their significant other prior to the catheterization. The Timeout was completed, verifying the correct patient and procedure. The patient's procedural site was prepped and draped in the usual fashion. Local anesthetic was given subcutaneously to right radial region with Lidocaine 2%. Using a modified Seldinger technique, arterial access was obtained via the right radial artery, a 6Fr sheath was inserted. Left Coronary Artery selective angiography was performed in multiple views using a 5 Fr. 4.0 [place] catheter. Right Coronary Artery selective angiography was then performed in multiple views using a 5 Fr. 4.0 [place] catheter.The arterial sheath was pulled and a TR Band was applied for hemostasis CORONARY ANGIOGRAPHY DOMINANCE: Right Dominant LEFT HEART ASSESSMENT Left Ventricular Ejection Fraction: by Echo 65 % Normal LV wall motion Normal Left Ventricular systolic function LEFT MAIN: Angiographically normal LEFT ANTERIOR DESCENDING ARTERY: Small size vessel with proximal 90% sequential stenosis involving the takeoff of the first diagonal branch. The mid segment has a long 80% stenosis in the distal 80% stenosis also noted. CIRCUMFLEX ARTERY: Nondominant vessel with a proximal 60% stenosis. The first obtuse marginal branch with a proximal long 80% stenosis in the AV groove branch which is a medium size vessel with mild diffuse luminal irregularities. RIGHT CORONARY ARTERY: Small right coronary artery with 70 to 80% long proximal to mid segment and it bifurcates to posterior descending artery and posterolateral vessel with the posterior descending artery ostium of 80 to 90% stenosis present. COMPLICATIONS No Complications PROCEDURE MEDICATIONS Versed 1 mg IV Fentanyl 50 mcg IV Versed 1 mg IV Heparin given IA 11/30/2024 12:19:54 Verapamil 2.5mg, Ntg 100mcgs, 3000 units of Heparin given IA 11/30/2024 12:19:54 SUMMARY OF HEMODYNAMIC DATA Time AIR REST ECG 11:58:38 AO 156/76 (105) SA 12:45:27 13:21:57 Signed By Sher Rascon MD On 11/30/2024 13:24:21 Sher Rascon MD
--- NOTE | 2024-11-30 13:32 | DS.PCM_ITS ---
Providers Date of Admission: 11/30/24 Date of Discharge: 11/30/24 Primary Care Physician: Dr. Eldon Dye MD Consultations 11/30/24 11:19 Consult: Cardiology Routine Consulting Provider: Sher Rascon Reason for Consult: abn stress test EMERGENT Consult: No MD Notified: Yes Date Notified: 11/30/24 Time Notified: 11:19 Method of Notification: Verbal Reason For Visit: CHEST PAIN Diagnosis Discharge Diagnosis (1) Elevated troponin: Status: Acute Code(s): R79.89 - Other specified abnormal findings of blood chemistry (2) Hypertension: Status: Chronic Code(s): I10 - Essential (primary) hypertension Medications at Discharge Home Medications albuterol sulfate 90 mcg/actuation aerosol inhaler 2 puff inhalation Q4H PRN shortness of breath or wheezing 11/29/24 bupropion HCl 150 mg tablet,12 hr sustained-release 150 mg PO DAILY 11/29/24 nebivolol 5 mg tablet 5 mg PO DAILY 11/29/24 diclofenac sodium 75 mg tablet,delayed release 75 mg PO BID 11/30/24 eszopiclone 3 mg tablet (Lunesta) 3 mg PO .hs sleep 11/30/24 modafinil 200 mg tablet (Provigil) 200 mg PO DAILY Narcolepsy 11/30/24 omeprazole 20 mg tablet,delayed release 20 mg PO DAILY 11/30/24 Hospital Course Operations None Procedures 2-D Echocardiogram, Cardiac catheterization and EKG Summary of Care Provided Minutes Spent on Discharge: 20 Hospital Course: Patient is a 64-year-old white male with a history of hypertension and a very strong family history of coronary artery disease who presents emergency department was prehospital on 11/29/2024 with chief complaint of chest pain. Patient reported that he has been noticing some intermittent bouts of chest pain throughout the day on the day of presentation. He reported that his entire chest was uncomfortable from the right side to the left and radiated slightly in the left shoulder and arm region. He denied any associated nausea, vomiting, diaphoresis or shortness of breath. He did feel like the pain was a squeezing or pressure type sensation. He reported that his father had stent placement at about the same age as he is currently. Given his family history he was concerned about the symptoms so he presented to the emergency department. Vital signs on presentation showed temperature of 97.8, heart rate 67, respiratory was 18, blood pressure was 154/79 and pulse ox was 100% on room air. CBC was unremarkable. D-dimer was normal at 0.27. Chemistry panel was unremarkable. Initial troponin was 15 with a repeat of 30. Lipid panel showed a total cholesterol 172/LDL 103/HDL 33/triglycerides 179. TSH was within normal limits. Initial EKG showed no signs consistent with acute ischemia. Chest x-ray was unremarkable for acute findings. Patient was admitted to the telemetry floor and stress test and echocardiogram were ordered. Echo showed an EF of 65% with normal valves and no wall motion abnormalities. Stress test was performed and was abnormal with reduction of perfusion noted in the mid anterior wall with normal EF. Given the abnormality on his stress test cardiology was consulted and he was taken to the [facility]. Diagnostic catheterization showed severe triple-vessel disease involving the LAD, circumflex, and RCA with preserved ejection fraction. Given these findings the case was discussed with cardiothoracic surgery at [facility] and patient was accepted by Dr. Irineo Rojo for transfer and consideration for CABG. Patient was placed on aspirin and statin when he was hospitalized and maintained on his home beta- mukesh. Bed became available at [facility] on 11/30/2024 and patient was transferred to tertiary center in stable condition at that time. Discharge diagnoses: Severe triple-vessel coronary artery disease Essential hypertension Hyperlipidemia Depression/anxiety Physical Exam Narrative Patient currently denying any chest pain Const alert, oriented x3, no apparent distress, no limitations and well nourished Constitutional Narrative: Upper middle-aged, white male, sitting up in bed, multiple family members at bedside, nursing at bedside, patient appears comfortable, nontoxic General Appearance: cooperative, comfortable, well kempt and well developed HEENT normocephalic and head/scalp atraumatic Resp normal respiratory effort, no retractions, no use of accessory muscles and clear to auscultation bilaterally Auscultation: Negative for rales, rhonchi or wheezes Cardio regular rate, regular rhythm, S1 normal heart sound, S2 normal heart sound, no murmurs, no rub, no gallops and no clicks GI normal to inspection, nondistended, normoactive bowel sounds, soft to palpation and non-tender Extremity no clubbing, cyanosis or edema Extremity Narrative: Right radial compression device in place status postcardiac catheterization Neuro oriented x3 and moves all extremities Speech: speech normal Psych Psych Narrative: Mildly anxious appearing but appropriate for current situation, affect is normal patient interacts appropriately Weight / BMI Weight Weight: 70.8 kg Body Mass Index (BMI) 23.0 ABG / Lab / Microbiology Data 11/30/24 03:20 11/30/24 03:20 Laboratory: Laboratory Results - last 24 hr 11/29/24 22:45: WBC 6.1, RBC 4.29 L, Hgb 13.6, Hct 38.0 L, MCV 88.6, MCH 31.7, MCHC 35.8, RDW Std Deviation 38.6, RDW Coeff of Leah 12.1, Plt Count 244, MPV 9.6, Immature Gran % (Auto) 0.300, Neut % (Auto) 69.5, Lymph % (Auto) 19.2, Island % (Auto) 9.6, Eos % (Auto) 0.7, Baso % (Auto) 0.7, Absolute Neuts (auto) 4.3, Absolute Lymphs (auto) 1.18, Nucleated RBC % 0, D-Dimer Quant (PE/DVT) 0.27, Sodium 140, Potassium 4.1, Chloride 106, Carbon Dioxide 22.9, Anion Gap 11, BUN 19, Creatinine 1.14, Estim Creat Clear Calc 62.50, Est GFR (MDRD) Non-Af 71, BUN/Creatinine Ratio 17.0, Glucose 127 H, Calcium 8.9, Magnesium 2.2, Troponin T High Sens 15 11/30/24 00:40: Troponin T Hi Sens 2 Hr 30 H 11/30/24 03:20: WBC 5.1, RBC 4.20 L, Hgb 13.4, Hct 37.8 L, MCV 90.0, MCH 31.9, MCHC 35.4, RDW Std Deviation 39.4, RDW Coeff of Leah 12.1, Plt Count 232, MPV 9.6, D-Dimer Quant (PE/DVT) 0.27, Sodium 140, Potassium 4.1, Chloride 106, Carbon Dioxide 22.7, Anion Gap 11, BUN 19, Creatinine 0.97, Estim Creat Clear Calc 75.92, Est GFR (MDRD) Non-Af 86, BUN/Creatinine Ratio 19.9, Glucose 103 H, Calcium 9.1, Total Bilirubin 0.39, AST 22, ALT 35, Alkaline Phosphatase 79, T roponin T Hi Sens 4Hr 27 H, Total Protein 6.3, Albumin 4.1, Globulin 2.2, Albumin/Globulin Ratio 1.9, Triglycerides 179, Cholesterol 172, LDL Cholesterol, Calc 103, VLDL Cholesterol 36, HDL Cholesterol 33 L, Cholesterol/HDL Ratio 5.18, TSH 3.000 Radiography Diagnostic Testing: Radiology Impression Chest X-Ray 11/29/24 23:10 IMPRESSION: NEGATIVE CHEST Reading Location: [id number] Echocardiogram 11/30/24 01:56 Interpretation Summary Normal LV size. Left ventricular systolic function is normal. The left ventricular ejection fraction is 65 %. Structurally normal valves. Ordering Physician: Rafita Vazquez Referring Physician: Eldon Dye Performed By: Eugenia Larson, TIGIST, RVT D/C Instructions DC O2, CPAP, BIPAP Needs Home O2 Discharge instructions: No Meaningful Use Info Meaningful Use Meaningful Use Diagnoses (Choose all that apply): None applicable Ischemic Stroke Statin Dosing Therapy Reference: STATIN DOSE THERAPY REFERENCE: * Patients > 75 years receive moderate or high dose statin therapy. * Patients 75 years or YOUNGER should receive HIGH intensity statin dose unless contraindicated. You will be required to document reason for non-treatment if statin daily dose does not meet guidelines. HIGH DOSE STATIN THERAPY DAILY Atorvastatin > than or = to 40 mg Rosuvastatin > than or = to 20 mg Amlodipine + Atorvastatin > than or = to 2.5/40 mg Ezetimibe + Simvastatin 10/80 mg Simvastatin 80mg Discharge Plan Admission Admit Date/Time: 11/30/24 01:28 Primary Reason for Your Visit: Chest pain Attending Provider: Devorah Maldonado Primary Care Provider: Eldon Dye Consulting Providers: Rafita Vazquez; Sher Rascon Discharge Orders/Prescriptions Prescriptions: No Action albuterol sulfate 90 mcg/actuation HFA aerosol inhaler 2 puff inhalation Q4H PRN (Reason: shortness of breath or wheezing) bupropion HCl 150 mg tablet sustained-release 12 hr 150 mg PO DAILY nebivolol 5 mg tablet 5 mg PO DAILY modafinil [Provigil] 200 mg tablet 200 mg PO DAILY omeprazole 20 mg tablet,delayed release (DR/EC) 20 mg PO DAILY eszopiclone [Lunesta] 3 mg tablet 3 mg PO .hs diclofenac sodium 75 mg tablet,delayed release (DR/EC) 75 mg PO BID Referrals / Follow Up: Eldon Dye MD [Primary Care Provider] - Disposition Disposition (needs filled in before D/C Order can be placed): Acute Care Hospital Charges/Coding Visit Charges Inpatient E&M: 52715 Disch Hosp
[2024-11-30] MEDS: 0.9% Normal Saline (1000mL) 1,000 ML 15 ML IV (13:53)
--- NOTE | 2024-11-30 14:22 | CHAPLAIN ---
Type of Pastoral Visit ___ Initial Visit ___ Follow-up Visit ___ On-call Visit ___ General Patient Visit ___ Spiritual Assessment ___ Family Conference ___ Bereavement ___ Rapid Response ___ Code Blue ___ Other (describe below) Pastoral Care Referral From ___ Patient ___ Family ___ Nurse ___ Physician ___ Speed Operator ___ Commercial Light Fixture Assembler ___ Other (describe below) Sacrament/Intervention ___ Active listening ___ Anointing ___ Jainism ___ Bereavement ___ Communion ___ Cintia exploration ___ ___ Life review ___ Prayer ___ Reconciliation ___ Sacrament of Sick ___ Supportive presence ___ Wedding ___ Other (describe below) Pastoral Comments patient and bed were not in the room at time of attempted visit; left a calling card
== END 2024-11-30 17:04 | disposition other institution (70) | DRG 287 ==
LOC: ED 11-30 01:22 → PCU 11-30 01:36
PROVIDERS: Admitting Provider Internal Medicine; Emergency Provider Emergency Medicine; PCP Family Medicine; Visit Provider Internal Medicine
DX: I25.110 Atherosclerotic heart disease of native coronary artery with unstable angina pectoris (principal); E78.5 Hyperlipidemia, unspecified; F32.A Depression, unspecified; I10 Essential (primary) hypertension; F41.9 Anxiety disorder, unspecified; I25.84 Coronary atherosclerosis due to calcified coronary lesion; R79.89 Other specified abnormal findings of blood chemistry; Z82.49 Family history of ischemic heart disease and other diseases of the circulatory system; Z79.899 Other long term (current) drug therapy; Z88.8 Allergy status to other drugs, medicaments and biological substances; Z88.5 Allergy status to narcotic agent; Z75.1 Person awaiting admission to adequate facility elsewhere
CPT/HCPCS: 71046; 78452; 80048; 80053; 80061; 83735; 84443; 84484; 85025; 85027; 85379; 93005; 93017; 93306; 93454; 99152; 99153; 99284; A9500; Q9967; A4216; C1769; C1894; J2785